=== PATIENT | male | born 1985 | race Caucasian/White ===

== ENCOUNTER 2022-05-30 14:39 | Emergency (ER) | payer OTHER, SELFPAY ==
--- NOTE | 2022-05-30 16:43 | EXP.UTC ---
Discharge Plan Disposition Patient Disposition: Home, Self-Care Condition: Good Prescriptions Prescriptions: New benzonatate [benzonatate] 100 mg capsule 100 mg PO TIDP PRN (Reason: Cough) Qty: 30 0RF oseltamivir [Tamiflu] 75 mg capsule 75 mg PO BID Qty: 10 0RF methylprednisolone 4 mg Tablets,Dose Pack 4 mg PO DIRECTED Qty: 21 0RF azithromycin [Zithromax] 250 mg tablet 250 mg PO UD DOSE PK Qty: 6 0RF Rx Instructions: Take two (2) tablets today, then one (1) tablet days #2 thru #5 No Action cyclobenzaprine 10 MG tablet 10 mg PO TID PRN (Reason: Muscle Spasm) Qty: 15 0RF ibuprofen 600 MG tablet 600 mg PO Q6HP PRN (Reason: Moderate Pain) Qty: 20 0RF Activity Restrictions/Add. Instructions Additional Instructions/Restrictions: Drink plenty of fluids. Take tylenol or ibuprofen for pain or fever. Take the medications as directed. Follow up with your regular doctor. GO TO THE ER FOR ANY WORSENING SYMPTOMS Clinical Impressions Clinical Impression: Influenza A Stand Alone Forms Stand Alone Forms: Work/School Release Instructions Patient Instructions: DI for Influenza -- Adult, Oseltamivir Discharge ED Provider: Kg Nash [facility] General Stated complaint: cough,stuffy nose,body aches,loss of taste Time Seen by Provider: 05/30/22 16:43 History of Present Illness Provider Complaint: He states that for the past 1 day he has had body aches, chills, fever and malaise. He has a productive cough with greenish sputum also. Related Data Previous Rx's Medication Instructions Recorded cyclobenzaprine 10 mg tablet 10 mg PO TID PRN Muscle Spasm #15 12/05/18 tabs ibuprofen 600 mg tablet 600 mg PO Q6HP PRN Moderate Pain 12/05/18 #20 tabs azithromycin 250 mg tablet 250 mg PO UD DOSE PK #6 tabs 05/30/22 (Zithromax) benzonatate 100 mg capsule 100 mg PO TIDP PRN Cough #30 caps 05/30/22 methylprednisolone 4 mg tablets in 4 mg PO DIRECTED #21 tabs 05/30/22 a dose pack oseltamivir 75 mg capsule (Tamiflu) 75 mg PO BID #10 caps 05/30/22 Allergies Allergy/AdvReac Type Severity Reaction Status Date / Time No Known Allergies Allergy Verified 05/30/22 17:09 [facility] Social History Smoking Status: Current every day smoker tobacco type: cigarettes packs per day: 1 and smokeless tobacco alcohol intake: never current occupational status: other Travel in the last 8 weeks: None housing: other ROS Obtained: Yes All systems reviewed & no additional complaints except as documented Constitutional Constitutional: Reports chills and Reports fever(s) Eyes Eyes: Denies eye discharge ENT Ears, Nose, Mouth, and Throat: Reports as per HPI Cardiovascular Cardiovascular: Denies chest pain Respiratory Respiratory: Denies chest congestion and Reports cough Gastrointestinal Gastrointestingal: Reports nausea; Denies abdominal pain, constipation, cramping, diarrhea or vomiting Musculoskeletal Musculoskeletal: Denies arthralgias Integumentary/Breasts Skin/Breast: Denies rash Neurologic Neurologic: Denies paresthesias Physical Exam General General appearance: alert and in no apparent distress Head Head exam: atraumatic, normocephalic and normal inspection Eye Eye exam: Present normal appearance, PERRL and EOMI ENT ENT exam: Present normal exam, normal oropharynx, mucous membranes moist, TM's normal bilaterally and normal external ear exam Neck Neck exam: Present normal inspection, full ROM and trachea midline; Absent meningismus or lymphadenopathy Chest Chest inspection: Present normal inspection and symmetric chest wall rise; Absent tenderness Respiratory Respiratory exam: Present normal lung sounds bilaterally; Absent respiratory distress Cardiovascular Cardiovascular exam: Present regular rate and normal rhythm; Absent JVD Abdominal Exam Abdominal exam: Present soft and normal bowel sounds; Absen
[2022-05-30 16:54] LABS: UTC Influenza A Antigen Positive (Negative); UTC Influenza B Antigen Negative (Negative)
[2022-05-30 17:08] VITALS: BP 134/75; PULSE 88; RESP 17; TEMP 37.7; O2SAT 96; BMI 19.3
[2022-05-30 17:26] VITALS: BP 134/75; PULSE 88; RESP 17; TEMP 37.7
== END 2022-05-30 17:31 | disposition home or self-care (01) ==
PROVIDERS: Emergency Provider Nurse Practitioner Family
DX: J10.1 Influenza due to other identified influenza virus with other respiratory manifestations (principal)
CPT/HCPCS: 87804; 99212; C9803; G0463; U0003; U0005

== ENCOUNTER 2022-06-02 17:03 | Emergency (ER) | payer OTHER, SELFPAY ==
[2022-06-02 18:05] VITALS: BP 131/82; PULSE 89; RESP 18; TEMP 36.8; O2SAT 98; BMI 21.9
--- NOTE | 2022-06-02 18:38 | EXP.UTC ---
Discharge Plan Disposition Patient Disposition: Home, Self-Care Condition: Good Prescriptions Prescriptions: No Action cyclobenzaprine 10 MG tablet 10 mg PO TID PRN (Reason: Muscle Spasm) Qty: 15 0RF ibuprofen 600 MG tablet 600 mg PO Q6HP PRN (Reason: Moderate Pain) Qty: 20 0RF benzonatate [benzonatate] 100 mg capsule 100 mg PO TIDP PRN (Reason: Cough) Qty: 30 0RF oseltamivir [Tamiflu] 75 mg capsule 75 mg PO BID Qty: 10 0RF methylprednisolone 4 mg Tablets,Dose Pack 4 mg PO DIRECTED Qty: 21 0RF azithromycin [Zithromax] 250 mg tablet 250 mg PO UD DOSE PK Qty: 6 0RF Rx Instructions: Take two (2) tablets today, then one (1) tablet days #2 thru #5 Referrals Follow up/Referrals: Provider,Referral, MD [Primary Care Provider] - See instructions Activity Restrictions/Add. Instructions Additional Instructions/Restrictions: Continue taking your prescribed medications Make sure that you are drinking plenty of fluids to keep you hydrated Over the counter Motrin and/or Tylenol for your fever Follow up with your Family Doctor if no improvement or any worsening of symptoms Straight to ER if any life threatening symptoms Clinical Impressions Clinical Impression: Influenza A Stand Alone Forms Stand Alone Forms: Work/School Release Instructions Patient Instructions: DI for Influenza -- Adult Discharge ED Provider: Nancy Grant [facility] [place] HPI General Stated complaint: SOA, COUGH, CONGESTION, BODY ACHES Mode of Arrival: Ambulatory Source of Information: Patient Limitations: No Limitations Time Seen by Provider: 06/02/22 18:38 Description of Symptoms (Recalled from Triage Doc. by RN): PATIENT C/O SOA. HE REPORTS BEING DIAGNOSED WITH FLU ON MONDAY HEENT Symptoms (Recalled from RN notes): No Resp Symptoms (Recalled from RN notes): Yes Skin Symptoms (Recalled from RN notes): No MS Symptoms (Recalled from RN notes): No Functional Status (Recalled from RN notes): WNL History of Present Illness Provider Complaint: Patient states that he was dx with the flu and his note said he could go back today to work States that he went back and they sent him to the clinic [place] and they told him where he was still having symptoms he could not return he had to come back to the [facility] States that he is feeling better but still having low grade fever on and off and feeling achy tire and SOA with cough State that he is still taking Tamiflu Related Data Previous Rx's Medication Instructions Recorded cyclobenzaprine 10 mg tablet 10 mg PO TID PRN Muscle Spasm #15 12/05/18 tabs ibuprofen 600 mg tablet 600 mg PO Q6HP PRN Moderate Pain 12/05/18 #20 tabs azithromycin 250 mg tablet 250 mg PO UD DOSE PK #6 tabs 05/30/22 (Zithromax) benzonatate 100 mg capsule 100 mg PO TIDP PRN Cough #30 caps 05/30/22 methylprednisolone 4 mg tablets in 4 mg PO DIRECTED #21 tabs 05/30/22 a dose pack oseltamivir 75 mg capsule (Tamiflu) 75 mg PO BID #10 caps 05/30/22 Allergies Allergy/AdvReac Type Severity Reaction Status Date / Time No Known Allergies Allergy Verified 05/30/22 17:09 Worker's Comp Is this a Worker's Comp case?: No [facility] Disclaimer: The information contained in this section may have been updated after the patient was seen, as this information can be updated by other users. Medical History (Updated 06/02/22 @ 18:49 by Nancy Grant APRN) No significant past medical history Social History (Updated 06/02/22 @ 18:18 by Cherry Dent RN) Smoking Status: Current every day smoker tobacco type: cigarettes packs per day: 1 and smokeless tobacco alcohol intake: never current occupational status: other Travel in the last 8 weeks: None housing: other ROS Obtained: Yes All systems reviewed & no additional complaints except as documented and Yes Systems reviewed as appropriate & no additional complaints except as documented Constitutional Constitutional: Reports system r
[2022-06-02 18:53] VITALS: BP 131/82; PULSE 89; RESP 18; TEMP 36.8; O2SAT 98
== END 2022-06-02 18:55 | disposition home or self-care (01) ==
PROVIDERS: Emergency Provider Nurse Practitioner
DX: J10.1 Influenza due to other identified influenza virus with other respiratory manifestations (principal)
CPT/HCPCS: 99212; G0463